=== PATIENT | female | born 2000 | race Caucasian/White ===

== ENCOUNTER 2019-12-21 13:23 | Inpatient (IN) | payer MEDICAID ==
[~2019-12-21] VITALS: Ht 162.6 cm; Wt 56.7 kg
[2019-12-21 15:50] VITALS: BP 119/68
[2019-12-21] MEDS ORDERED: HALOPERIDOL 5 MG TABLET PO PRN (16:00)
[2019-12-21] MEDS ORDERED: ZOLPIDEM TARTRATE 10 MG TABLET PO PRN (16:00)
[2019-12-21 16:30] VITALS: BP 124/77
[2019-12-21] MEDS ORDERED: INFLUENZA VIRUS VACCINE QVS 2019-20 (3YR+)/PF 60 MCG/0.5 ML SYRINGE IM ONE (16:45)
[2019-12-22 05:48] VITALS: BP 140/54
[2019-12-22 08:46] VITALS: BP 133/62
[2019-12-22] MEDS: LITHIUM CARBONATE 300 MG TABLET PO SCH ×2 (09:00→16:48)
[2019-12-22] MEDS: OLANZapine 5 MG TABLET PO SCH ×2 (09:00→16:47)
[2019-12-22 16:18] VITALS: BP 112/60
[2019-12-22] MEDS ORDERED: OLANZapine 5 MG TABLET PO SCH (17:00)
[2019-12-23 06:25] VITALS: BP 92/49
[2019-12-23 08:32] VITALS: BP 116/60
[2019-12-23] MEDS: OLANZapine 5 MG TABLET PO SCH ×2 (08:35→16:50)
[2019-12-23] MEDS: LITHIUM CARBONATE 300 MG TABLET PO SCH ×2 (08:36→16:50)
[2019-12-23 16:11] VITALS: BP 117/54
[2019-12-24 05:25] VITALS: BP 125/68
[2019-12-24 08:25] VITALS: BP 116/72
[2019-12-24] MEDS: OLANZapine 5 MG TABLET PO SCH ×2 (08:40→16:15)
[2019-12-24] MEDS: LITHIUM CARBONATE 300 MG TABLET PO SCH ×2 (08:43→16:16)
[2019-12-24] MEDS: LORazepam 2 MG TABLET PO PRN (16:16)
[2019-12-24 16:43] VITALS: BP 132/79
[2019-12-25 05:19] VITALS: BP 127/73
[2019-12-25 07:44] LABS: HEMATOCRIT 40.1 % (36-46); LYMPHOCYTES # (AUTO) 1.5 K/uL (1.0-4.8); LYMPHOCYTES % (AUTO) 25.1 % (22.0-44.0); MEAN CORPUSCULAR HEMOGLOBIN 28.5 pg (26.0-34.0); MEAN CORPUSCULAR HGB CONC 32.4 G/dL (31.0-37.0); MEAN CORPUSCULAR VOLUME 88 fL (80-100); MONOCYTES # (AUTO) 0.5 K/uL (0.1-1.0); MONOCYTES % (AUTO) 8.4 % (2.0-9.0); NEUTROPHILS # (AUTO) 3.8 K/uL (1.8-7.7); NEUTROPHILS % (AUTO) 61.5 % (40.0-70.0); PLATELET COUNT (AUTO) 249 K/uL (150-450); RED BLOOD CELL COUNT(AUTO) 4.57 MIL/uL (4.00-5.20); RED CELL DISTRIBUTION WIDTH 15.4 % (11.5-14.5)
[2019-12-25 07:51] LABS: LITHIUM 0.42 mmol/L (0.60-1.20)
[2019-12-25 08:10] LABS: ALANINE AMINOTRANSFERASE 17 U/L (12-78); ALBUMIN 3.5 g/dL (3.4-5.0); ALKALINE PHOSPHATASE 52 U/L (46-116); ANION GAP 9 mmol/L (8-16); ASPARTATE AMINOTRANSFERASE 9 U/L (15-37); CALCIUM, TOTAL 9.1 mg/dL (8.8-10.5); CARBON DIOXIDE 25 mmol/L (22-29); CHLORIDE 106 mmol/L (98-107); CHOL/HDL RATIO 2.8 (3.9-5.7); CHOLESTEROL 169 mg/dL (131-200); CREATININE 0.71 mg/dL (0.60-1.30); FREE T4 (FREE THYROXINE) 0.71 ng/dL (0.76-1.46); GLOMERULAR FILTR. RATE CALC > 60 mL/min (>60); GLUCOSE,RANDOM 90 mg/dL (70-110); HCG,QUANTITATIVE < 1 mIU/mL (0-6); HDL CHOLESTEROL 60 mg/dL (40-60); LDL CHOL (CALC.) 95 mg/dL (0-130); POTASSIUM 4.5 mmol/L (3.5-5.1); SODIUM SERUM 140 mmol/L (136-145); THYROID STIMULATING HORMONE 0.95 uIU/mL (0.36-3.74); TOTAL PROTEIN, SERUM 6.4 g/dL (6.4-8.2); TRIGLYCERIDES 68 mg/dL (15-150); UREA NITROGEN, BLOOD 15 mg/dL (7-18)
[2019-12-25 08:22] LABS: HEMOGLOBIN A1C 5.8 % (3.8-5.6)
[2019-12-25 08:23] LABS: BILIRUBIN,TOTAL 0.1 mg/dL (0.1-1.0)
[2019-12-25 08:24] VITALS: BP 102/57
[2019-12-25] MEDS: LITHIUM CARBONATE 450 MG ER TABLET PO SCH ×2 (08:39→16:54)
[2019-12-25] MEDS: OLANZapine 5 MG TABLET PO SCH ×2 (08:39→16:54)
[2019-12-25] MEDS: LORazepam 2 MG TABLET PO PRN ×2 (09:35→16:54)
[2019-12-25 16:20] VITALS: BP 112/78
[2019-12-26 06:18] VITALS: BP 112/61
[2019-12-26 08:02] VITALS: BP 112/63
[2019-12-26] MEDS: LITHIUM CARBONATE 450 MG ER TABLET PO SCH ×2 (08:17→16:54)
[2019-12-26] MEDS: OLANZapine 5 MG TABLET PO SCH ×2 (08:17→16:54)
[2019-12-26] MEDS: LORazepam 2 MG TABLET PO PRN ×2 (08:25→13:44)
[2019-12-26] MEDS: NICOTINE POLACRILEX 2 MG LOZENGE PO PRN (13:44)
[2019-12-26 16:06] VITALS: BP 131/70
[2019-12-26] MEDS ORDERED: LITH300CRT PO (19:29)
[2019-12-26] MEDS ORDERED: OLAN5TAB2 PO (19:29)
[2019-12-27 05:02] VITALS: BP 114/72
[2019-12-27 08:17] VITALS: BP 128/81
[2019-12-27] MEDS: LITHIUM CARBONATE 450 MG ER TABLET PO SCH (08:20)
[2019-12-27] MEDS: LORazepam 2 MG TABLET PO PRN (08:20)
[2019-12-27] MEDS: OLANZapine 5 MG TABLET PO SCH (08:20)
[2019-12-27] MEDS: NICOTINE POLACRILEX 2 MG LOZENGE PO PRN ×2 (08:21→14:34)
== END 2019-12-27 15:15 | disposition home or self-care (01) | DRG 753 ==
LOC: B3A 16:35
PROVIDERS: ADMIT Psychiatry & Neurology Psychiatry; ATTEND Psychiatry & Neurology Psychiatry
DX: F31.9 Bipolar disorder, unspecified (principal); E78.5 Hyperlipidemia, unspecified; I10 Essential (primary) hypertension; K21.9 Gastro-esophageal reflux disease without esophagitis; Z59.0 Homelessness; Y90.2 Blood alcohol level of 40-59 mg/100 ml; F19.10 Other psychoactive substance abuse, uncomplicated
CPT/HCPCS: 83036; 84439; 84443; 87081; 90686

== ENCOUNTER 2020-08-12 08:51 | Inpatient (IN) | payer MEDICAID, OTHER ==
[~2020-08-12] VITALS: Ht 165.1 cm; Wt 58.1 kg
[~2020-08-12 08:51] MED LIST: LITH300CRT PO; OLAN5TAB2 PO
[2020-08-12 11:34] LABS: BASOPHILS % (AUTO) 0.9 % (0.0-2.0); EOSINOPHILS % (AUTO) 1.5 % (1.0-6.0); HEMATOCRIT 31.9 % (36-46); HEMOGLOBIN 10.3 g/dL (12.0-16.0); LYMPHOCYTES # (AUTO) 2.1 K/uL (1.0-4.8); LYMPHOCYTES % (AUTO) 22.1 % (22.0-44.0); MEAN CORPUSCULAR HEMOGLOBIN 25.5 pg (26.0-34.0); MEAN CORPUSCULAR HGB CONC 32.4 G/dL (31.0-37.0); MEAN CORPUSCULAR VOLUME 79 fL (80-100); MONOCYTES # (AUTO) 0.6 K/uL (0.1-1.0); MONOCYTES % (AUTO) 6.6 % (2.0-9.0); NEUTROPHILS # (AUTO) 6.7 K/uL (1.8-7.7); NEUTROPHILS % (AUTO) 68.9 % (40.0-70.0); PLATELET COUNT (AUTO) 266 K/uL (150-450); RED BLOOD CELL COUNT(AUTO) 4.05 MIL/uL (4.00-5.20); RED CELL DISTRIBUTION WIDTH 16.4 % (11.5-14.5)
[2020-08-12 11:43] LABS: ANION GAP 8 mmol/L (8-16); CARBON DIOXIDE 28 mmol/L (22-29); CHLORIDE 104 mmol/L (98-107); CREATININE 0.55 mg/dL (0.60-1.30); GLOMERULAR FILTR. RATE CALC > 60 mL/min (>60); GLUCOSE,RANDOM 94 mg/dL (70-110); POTASSIUM 3.6 mmol/L (3.5-5.1); SODIUM SERUM 140 mmol/L (136-145); UREA NITROGEN, BLOOD 10 mg/dL (7-18)
[2020-08-12 11:46] LABS: LITHIUM < 0.20 mmol/L (0.60-1.20)
[2020-08-12 11:48] LABS: ALANINE AMINOTRANSFERASE 14 U/L (12-78); ALBUMIN 3.8 g/dL (3.4-5.0); ALKALINE PHOSPHATASE 68 U/L (46-116); ASPARTATE AMINOTRANSFERASE 14 U/L (15-37); BILIRUBIN,TOTAL 0.4 mg/dL (0.1-1.0)
[2020-08-12] MEDS ORDERED: HALOPERIDOL 5 MG TABLET PO PRN (14:00)
[2020-08-12] MEDS ORDERED: ZOLPIDEM TARTRATE 10 MG TABLET PO PRN (14:00)
[2020-08-12 15:57] LABS: COVID AG,FIA SOURCE NASAL SWAB
[2020-08-12 18:53] VITALS: BP 110/57
[2020-08-12] MEDS: BACITRACIN 28 GM OINTMENT TP SCH (19:15)
[2020-08-12] MEDS ORDERED: DOCUSATE SODIUM 100 MG CAPSULE PO PRN (19:30)
[2020-08-12] MEDS ORDERED: ALBUTEROL SULFATE HFA 90 MCG/PUFF 8 GM INHALER IH PRN (19:30)
[2020-08-12] MEDS ORDERED: ACETAMINOPHEN 325 MG TABLET PO PRN (19:30)
[2020-08-12] MEDS ORDERED: ONDANSETRON HCL 4 MG TABLET PO PRN (19:30)
[2020-08-12] MEDS ORDERED: CloNIDine HCL 0.1 MG TABLET PO PRN (19:30)
[2020-08-12] MEDS ORDERED: MAG HYDROX/AL HYDROX/SIMETH ES 30 ML SUSPENSION UDCUP PO PRN (19:30)
[2020-08-12] MEDS ORDERED: MAGNESIUM HYDROXIDE SUSPENSION 30 ML UDCUP PO PRN (19:30)
[2020-08-12] MEDS ORDERED: PETROLATUM,WHITE 28 GM JELLY TP PRN (19:30)
[2020-08-12] MEDS ORDERED: NICOTINE 14 MG/24 HOUR PATCH TD PRN (19:30)
[2020-08-12] MEDS ORDERED: GuaiFENesin/D-METHORPHAN [SUGAR-FREE] 200-20MG/10 ML SYRUP UDCUP PO PRN (19:30)
[2020-08-12] MEDS ORDERED: IBUPROFEN 400 MG TABLET PO PRN (19:30)
[2020-08-12] MEDS ORDERED: LOPERAMIDE HCL 2 MG CAPSULE PO PRN (19:30)
[2020-08-12] MEDS: CEPHALEXIN MONOHYDRATE 500 MG CAPSULE PO SCH (20:52)
[2020-08-13] MEDS ORDERED: ONDANSETRON HCL 4 MG TABLET PO PRN (07:00)
[2020-08-13] MEDS ORDERED: CloNIDine HCL 0.1 MG TABLET PO PRN (07:00)
[2020-08-13] MEDS ORDERED: MAG HYDROX/AL HYDROX/SIMETH ES 30 ML SUSPENSION UDCUP PO PRN (07:00)
[2020-08-13] MEDS ORDERED: IBUPROFEN 400 MG TABLET PO PRN (07:00)
[2020-08-13] MEDS ORDERED: NICOTINE 14 MG/24 HOUR PATCH TD PRN (07:00)
[2020-08-13] MEDS ORDERED: LOPERAMIDE HCL 2 MG CAPSULE PO PRN (07:00)
[2020-08-13] MEDS ORDERED: GuaiFENesin/D-METHORPHAN [SUGAR-FREE] 200-20MG/10 ML SYRUP UDCUP PO PRN (07:00)
[2020-08-13] MEDS ORDERED: PETROLATUM,WHITE 28 GM JELLY TP PRN (07:00)
[2020-08-13] MEDS ORDERED: ACETAMINOPHEN 325 MG TABLET PO PRN (07:00)
[2020-08-13] MEDS ORDERED: DOCUSATE SODIUM 100 MG CAPSULE PO PRN (07:00)
[2020-08-13] MEDS ORDERED: MAGNESIUM HYDROXIDE SUSPENSION 30 ML UDCUP PO PRN (07:00)
[2020-08-13] MEDS ORDERED: ALBUTEROL SULFATE HFA 90 MCG/PUFF 8 GM INHALER IH PRN (07:00)
[2020-08-13 07:13] LABS: BASOPHILS % (AUTO) 1.1 % (0.0-2.0); EOSINOPHILS % (AUTO) 5.3 % (1.0-6.0); HEMATOCRIT 32.9 % (36-46); HEMOGLOBIN 10.8 g/dL (12.0-16.0); LYMPHOCYTES # (AUTO) 1.6 K/uL (1.0-4.8); LYMPHOCYTES % (AUTO) 30.8 % (22.0-44.0); MEAN CORPUSCULAR HGB CONC 32.7 G/dL (31.0-37.0); MEAN CORPUSCULAR VOLUME 80 fL (80-100); MONOCYTES # (AUTO) 0.4 K/uL (0.1-1.0); MONOCYTES % (AUTO) 6.6 % (2.0-9.0); NEUTROPHILS % (AUTO) 56.2 % (40.0-70.0); PLATELET COUNT (AUTO) 247 K/uL (150-450); RED BLOOD CELL COUNT(AUTO) 4.14 MIL/uL (4.00-5.20); RED CELL DISTRIBUTION WIDTH 16.5 % (11.5-14.5)
[2020-08-13 07:37] LABS: ALANINE AMINOTRANSFERASE 15 U/L (12-78); ALBUMIN 3.4 g/dL (3.4-5.0); ALKALINE PHOSPHATASE 62 U/L (46-116); ANION GAP 5 mmol/L (8-16); ASPARTATE AMINOTRANSFERASE 11 U/L (15-37); BILIRUBIN,TOTAL 0.4 mg/dL (0.1-1.0); CALCIUM, TOTAL 8.7 mg/dL (8.8-10.5); CARBON DIOXIDE 29 mmol/L (22-29); CHLORIDE 105 mmol/L (98-107); CHOL/HDL RATIO 2.4 (3.9-5.7); CHOLESTEROL 160 mg/dL (131-200); GLOMERULAR FILTR. RATE CALC > 60 mL/min (>60); GLUCOSE,RANDOM 89 mg/dL (70-110); HDL CHOLESTEROL 68 mg/dL (40-60); LDL CHOL (CALC.) 84 mg/dL (0-130); POTASSIUM 4.2 mmol/L (3.5-5.1); SODIUM SERUM 139 mmol/L (136-145); THYROID STIMULATING HORMONE 0.23 uIU/mL (0.36-3.74); TOTAL PROTEIN, SERUM 6.8 g/dL (6.4-8.2); TRIGLYCERIDES 42 mg/dL (15-150); UREA NITROGEN, BLOOD 8 mg/dL (7-18)
[2020-08-13 07:41] LABS: HEMOGLOBIN A1C 5.1 % (3.8-5.6)
[2020-08-13] MEDS: CEPHALEXIN MONOHYDRATE 500 MG CAPSULE PO SCH ×3 (08:34→16:27)
[2020-08-13] MEDS: BACITRACIN 28 GM OINTMENT TP SCH ×2 (08:34→16:27)
[2020-08-13] MEDS: NICOTINE 14 MG/24 HOUR PATCH TD SCH (08:46)
[2020-08-13] MEDS ORDERED: LITH450CRT PO (14:25)
[2020-08-13 16:00] VITALS: BP 109/64
[2020-08-13] MEDS: OLANZapine 5 MG TABLET PO SCH (16:27)
[2020-08-13] MEDS: LITHIUM CARBONATE 450 MG ER TABLET PO SCH (16:27)
[2020-08-14] MEDS: MULTIVITAMINS WITH MINERALS, THERAPEUTIC TABLET PO SCH (08:22)
[2020-08-14] MEDS: LITHIUM CARBONATE 450 MG ER TABLET PO SCH ×2 (08:22→16:10)
[2020-08-14] MEDS: BACITRACIN 28 GM OINTMENT TP SCH ×2 (08:22→16:10)
[2020-08-14] MEDS: CEPHALEXIN MONOHYDRATE 500 MG CAPSULE PO SCH ×3 (08:22→16:10)
[2020-08-14] MEDS: OLANZapine 5 MG TABLET PO SCH ×2 (08:22→16:10)
[2020-08-14] MEDS: NICOTINE 14 MG/24 HOUR PATCH TD SCH (08:22)
[2020-08-14 08:51] VITALS: BP 111/67
[2020-08-14 16:15] VITALS: BP 104/57
[2020-08-15] MEDS: NICOTINE 14 MG/24 HOUR PATCH TD SCH (09:00)
[2020-08-15] MEDS: BACITRACIN 28 GM OINTMENT TP SCH ×2 (10:05→16:44)
[2020-08-15] MEDS: OLANZapine 5 MG TABLET PO SCH ×2 (10:05→16:44)
[2020-08-15] MEDS: LITHIUM CARBONATE 450 MG ER TABLET PO SCH ×2 (10:05→16:43)
[2020-08-15] MEDS: MULTIVITAMINS WITH MINERALS, THERAPEUTIC TABLET PO SCH (10:05)
[2020-08-15] MEDS: CEPHALEXIN MONOHYDRATE 500 MG CAPSULE PO SCH ×3 (10:05→16:44)
[2020-08-15] MEDS: FERROUS SULFATE 325 MG EC TABLET PO SCH (16:44)
[2020-08-16] MEDS: FERROUS SULFATE 325 MG EC TABLET PO SCH ×3 (07:05→17:03)
[2020-08-16] MEDS: NICOTINE 14 MG/24 HOUR PATCH TD SCH (09:00)
[2020-08-16] MEDS: LITHIUM CARBONATE 450 MG ER TABLET PO SCH ×2 (09:10→17:03)
[2020-08-16] MEDS: BACITRACIN 28 GM OINTMENT TP SCH ×2 (09:11→17:00)
[2020-08-16] MEDS: OLANZapine 5 MG TABLET PO SCH ×2 (09:11→17:03)
[2020-08-16] MEDS: CEPHALEXIN MONOHYDRATE 500 MG CAPSULE PO SCH ×3 (09:11→17:03)
[2020-08-16] MEDS: MULTIVITAMINS WITH MINERALS, THERAPEUTIC TABLET PO SCH (09:11)
[2020-08-16 10:15] VITALS: BP 119/78
[2020-08-16 16:33] VITALS: BP 104/62
[2020-08-17] MEDS: FERROUS SULFATE 325 MG EC TABLET PO SCH ×3 (06:58→17:30)
[2020-08-17] MEDS: OLANZapine 5 MG TABLET PO SCH (08:12)
[2020-08-17] MEDS: LITHIUM CARBONATE 450 MG ER TABLET PO SCH ×2 (08:12→17:00)
[2020-08-17] MEDS: MULTIVITAMINS WITH MINERALS, THERAPEUTIC TABLET PO SCH (08:12)
[2020-08-17] MEDS: CEPHALEXIN MONOHYDRATE 500 MG CAPSULE PO SCH ×3 (08:12→17:00)
[2020-08-17] MEDS: NICOTINE 14 MG/24 HOUR PATCH TD SCH (08:12)
[2020-08-17] MEDS: BACITRACIN 28 GM OINTMENT TP SCH ×2 (08:19→17:00)
[2020-08-17 16:26] VITALS: BP 106/58
[2020-08-17] MEDS: OLANZapine 7.5 MG TABLET PO SCH (17:00)
[2020-08-18] MEDS: FERROUS SULFATE 325 MG EC TABLET PO SCH ×3 (07:02→17:38)
[2020-08-18] MEDS: NICOTINE 14 MG/24 HOUR PATCH TD SCH (09:00)
[2020-08-18] MEDS: LITHIUM CARBONATE 450 MG ER TABLET PO SCH ×2 (09:25→17:38)
[2020-08-18] MEDS: BACITRACIN 28 GM OINTMENT TP SCH ×2 (09:25→17:39)
[2020-08-18] MEDS: CEPHALEXIN MONOHYDRATE 500 MG CAPSULE PO SCH ×3 (09:26→17:38)
[2020-08-18] MEDS: MULTIVITAMINS WITH MINERALS, THERAPEUTIC TABLET PO SCH (09:26)
[2020-08-18] MEDS: OLANZapine 7.5 MG TABLET PO SCH ×2 (09:28→17:38)
[2020-08-18] MEDS: LORazepam 2 MG TABLET PO PRN (15:01)
[2020-08-18 16:23] VITALS: BP 104/64
[2020-08-19] MEDS: FERROUS SULFATE 325 MG EC TABLET PO SCH ×3 (06:49→16:44)
[2020-08-19] MEDS: BACITRACIN 28 GM OINTMENT TP SCH ×2 (08:40→17:09)
[2020-08-19] MEDS: MULTIVITAMINS WITH MINERALS, THERAPEUTIC TABLET PO SCH (08:40)
[2020-08-19] MEDS: OLANZapine 7.5 MG TABLET PO SCH ×2 (08:40→16:45)
[2020-08-19] MEDS: LITHIUM CARBONATE 450 MG ER TABLET PO SCH ×2 (08:40→16:44)
[2020-08-19] MEDS: CEPHALEXIN MONOHYDRATE 500 MG CAPSULE PO SCH ×3 (08:40→16:44)
[2020-08-19] MEDS: NICOTINE 14 MG/24 HOUR PATCH TD SCH ×2 (08:40→11:34)
[2020-08-20] MEDS: FERROUS SULFATE 325 MG EC TABLET PO SCH ×3 (06:45→16:36)
[2020-08-20] MEDS: LITHIUM CARBONATE 450 MG ER TABLET PO SCH ×2 (09:23→16:36)
[2020-08-20] MEDS: MULTIVITAMINS WITH MINERALS, THERAPEUTIC TABLET PO SCH (09:24)
[2020-08-20] MEDS: NICOTINE 14 MG/24 HOUR PATCH TD SCH (09:25)
[2020-08-20] MEDS: OLANZapine 7.5 MG TABLET PO SCH ×2 (09:25→16:36)
[2020-08-20 16:46] VITALS: BP 142/83
[2020-08-21] MEDS: FERROUS SULFATE 325 MG EC TABLET PO SCH ×3 (06:50→16:14)
[2020-08-21 08:00] VITALS: BP 127/68
[2020-08-21] MEDS: NICOTINE 14 MG/24 HOUR PATCH TD SCH (08:46)
[2020-08-21] MEDS: MULTIVITAMINS WITH MINERALS, THERAPEUTIC TABLET PO SCH (08:46)
[2020-08-21] MEDS: OLANZapine 7.5 MG TABLET PO SCH ×2 (08:46→16:14)
[2020-08-21] MEDS: LITHIUM CARBONATE 450 MG ER TABLET PO SCH ×2 (08:46→16:14)
[2020-08-22] MEDS: FERROUS SULFATE 325 MG EC TABLET PO SCH ×3 (06:26→16:25)
[2020-08-22 08:00] VITALS: BP 113/61
[2020-08-22] MEDS: NICOTINE 14 MG/24 HOUR PATCH TD SCH (08:37)
[2020-08-22] MEDS: MULTIVITAMINS WITH MINERALS, THERAPEUTIC TABLET PO SCH (08:37)
[2020-08-22] MEDS: LITHIUM CARBONATE 450 MG ER TABLET PO SCH ×2 (08:37→16:25)
[2020-08-22] MEDS: OLANZapine 7.5 MG TABLET PO SCH ×2 (08:37→16:26)
[2020-08-22] MEDS: LORazepam 2 MG TABLET PO PRN (10:35)
[2020-08-22 16:06] VITALS: BP 126/68
[2020-08-23] MEDS: FERROUS SULFATE 325 MG EC TABLET PO SCH ×3 (06:51→16:32)
[2020-08-23 08:00] VITALS: BP 110/60
[2020-08-23] MEDS: LITHIUM CARBONATE 450 MG ER TABLET PO SCH ×2 (08:37→16:32)
[2020-08-23] MEDS: OLANZapine 7.5 MG TABLET PO SCH ×2 (08:37→16:32)
[2020-08-23] MEDS: MULTIVITAMINS WITH MINERALS, THERAPEUTIC TABLET PO SCH (08:38)
[2020-08-23] MEDS: NICOTINE 14 MG/24 HOUR PATCH TD SCH (08:38)
[2020-08-23 17:05] VITALS: BP 115/66
[2020-08-23] MEDS: LORazepam 2 MG TABLET PO PRN (17:13)
[2020-08-24] MEDS: FERROUS SULFATE 325 MG EC TABLET PO SCH ×3 (06:46→16:22)
[2020-08-24] MEDS: MULTIVITAMINS WITH MINERALS, THERAPEUTIC TABLET PO SCH (07:56)
[2020-08-24] MEDS: OLANZapine 7.5 MG TABLET PO SCH ×2 (07:56→16:22)
[2020-08-24] MEDS: LITHIUM CARBONATE 450 MG ER TABLET PO SCH ×2 (07:56→16:22)
[2020-08-24] MEDS: NICOTINE 14 MG/24 HOUR PATCH TD SCH (07:59)
[2020-08-24 08:33] VITALS: BP 127/78
[2020-08-24 17:08] VITALS: BP 111/63
[2020-08-24] MEDS: LORazepam 2 MG TABLET PO PRN (18:16)
[2020-08-25] MEDS: FERROUS SULFATE 325 MG EC TABLET PO SCH ×3 (06:45→18:38)
[2020-08-25 08:00] VITALS: BP 121/69
[2020-08-25] MEDS: LITHIUM CARBONATE 450 MG ER TABLET PO SCH ×2 (08:00→15:55)
[2020-08-25] MEDS: MULTIVITAMINS WITH MINERALS, THERAPEUTIC TABLET PO SCH (08:00)
[2020-08-25] MEDS: OLANZapine 7.5 MG TABLET PO SCH ×2 (08:01→15:55)
[2020-08-25] MEDS: NICOTINE 14 MG/24 HOUR PATCH TD SCH (08:01)
[2020-08-25] MEDS: LORazepam 2 MG TABLET PO PRN (16:31)
[2020-08-25 16:36] VITALS: BP 128/75
[2020-08-25 16:38] VITALS: BP 128/75
[2020-08-26] MEDS: FERROUS SULFATE 325 MG EC TABLET PO SCH ×3 (06:56→16:26)
[2020-08-26 08:00] VITALS: BP 133/81
[2020-08-26] MEDS: MULTIVITAMINS WITH MINERALS, THERAPEUTIC TABLET PO SCH (08:11)
[2020-08-26] MEDS: LITHIUM CARBONATE 450 MG ER TABLET PO SCH ×2 (08:11→16:26)
[2020-08-26] MEDS: OLANZapine 7.5 MG TABLET PO SCH ×2 (08:11→16:26)
[2020-08-26] MEDS: NICOTINE 14 MG/24 HOUR PATCH TD SCH (08:12)
[2020-08-26] MEDS: LORazepam 2 MG TABLET PO PRN (16:32)
[2020-08-26 16:38] VITALS: BP 133/87
[2020-08-27 00:37] VITALS: BP 120/76
[2020-08-27] MEDS: FERROUS SULFATE 325 MG EC TABLET PO SCH ×3 (06:35→16:45)
[2020-08-27] MEDS: LITHIUM CARBONATE 450 MG ER TABLET PO SCH ×2 (09:05→16:45)
[2020-08-27] MEDS: MULTIVITAMINS WITH MINERALS, THERAPEUTIC TABLET PO SCH (09:05)
[2020-08-27] MEDS: OLANZapine 7.5 MG TABLET PO SCH ×2 (09:05→16:45)
[2020-08-27] MEDS: LORazepam 2 MG TABLET PO PRN (09:06)
[2020-08-27] MEDS: NICOTINE 14 MG/24 HOUR PATCH TD SCH (09:07)
[2020-08-27 09:53] VITALS: BP 106/63
[2020-08-27 16:41] VITALS: BP 98/41
[2020-08-28 00:36] VITALS: BP 120/88
[2020-08-28] MEDS: FERROUS SULFATE 325 MG EC TABLET PO SCH ×3 (07:02→17:09)
[2020-08-28 08:51] VITALS: BP 114/68
[2020-08-28] MEDS: OLANZapine 7.5 MG TABLET PO SCH ×2 (09:42→17:09)
[2020-08-28] MEDS: MULTIVITAMINS WITH MINERALS, THERAPEUTIC TABLET PO SCH (09:42)
[2020-08-28] MEDS: LITHIUM CARBONATE 450 MG ER TABLET PO SCH ×2 (09:42→17:09)
[2020-08-28] MEDS: NICOTINE 14 MG/24 HOUR PATCH TD SCH (09:43)
[2020-08-28] MEDS ORDERED: OLAN7.5T9 PO (10:16)
[2020-08-28] MEDS ORDERED: LITH450CRT PO (10:16)
[2020-08-28] MEDS ORDERED: MULT-1203 PO (11:24)
[2020-08-28] MEDS ORDERED: FERR-89 PO (11:24)
[2020-08-28 15:03] LABS: COVID AG,FIA SOURCE NASAL SWAB
[2020-08-28 16:00] VITALS: BP 123/71
== END 2020-08-28 17:15 | disposition home or self-care (01) | DRG 753 ==
LOC: EMS 08:51 → 3EC 18:13 → 3EI 08-26 16:00
DX: F31.2 Bipolar disorder, current episode manic severe with psychotic features (principal); D64.9 Anemia, unspecified; E46 Unspecified protein-calorie malnutrition; F15.90 Other stimulant use, unspecified, uncomplicated; Z20.828 Contact with and (suspected) exposure to other viral communicable diseases; F23 Brief psychotic disorder; Z68.21 Body mass index [BMI] 21.0-21.9, adult; Z79.899 Other long term (current) drug therapy
CPT/HCPCS: 83036; 84443; 87426; G0480